=== PATIENT | female | born 1965 | race Caucasian/White ===

== ENCOUNTER 2024-06-16 09:56 | Emergency (ER) | payer OTHER ==
[~2024-06-16] VITALS: Ht 160 cm; Wt 73.0 kg
[2024-06-16 10:26] VITALS: O2SAT 98
[2024-06-16 10:46] LABS: BASOPHILS % 0.3 % (0.0-2.0); EOSINOPHILS % 1.5 % (0.0-5.0); HEMOGLOBIN. 13.1 g/dL (12.0-16.0); LYMPHOCYTES % 33.2 % (20.0-50.0); MEAN CORPUSCULAR HEMOGLOBIN 29.6 pg (28.0-32.0); MEAN CORPUSCULAR HGB CONC 33.5 g/dL (31.0-37.0); MEAN CORPUSCULAR VOLUME 88.2 fL (81.0-99.0); MEAN PLATELET VOLUME 9.5 fl (7.4-10.4); MONOCYTES % 5.3 % (2.0-8.0); NEUTROPHILS % 59.7 % (40.0-76.0); PLATELET 266 x1000/uL (130-400); RED BLOOD CELL COUNT 4.42 mill/uL (4.2-5.4); RED CELL DISTRIBUTION WIDTH 13.5 % (11.6-14.6); WHITE BLOOD COUNT 5.4 x1000/uL (4.5-11.0)
[2024-06-16 10:55] LABS: CHLORIDE 105 mEq/L (98-107); POTASSIUM 3.6 mEq/L (3.5-5.1); SODIUM 139 mEq/L (136-145)
[2024-06-16 10:56] LABS: CARBON DIOXIDE 29 mEq/L (21-32)
[2024-06-16 10:57] LABS: CALCIUM 9.9 mg/dL (8.7-10.4)
[2024-06-16 11:01] LABS: CREATININE 0.9 mg/dL (0.6-1.0); GLUCOSE 112 mg/dL (70-105)
[2024-06-16 11:02] LABS: UREA NITROGEN BLOOD 13 mg/dL (9-23)
[2024-06-16 11:03] LABS: ALANINE AMINOTRANSFERASE 21 IU/L (10-49); ALBUMIN 4.6 g/dL (3.2-4.8); ASPARTATE AMINOTRANSFERASE 25 IU/L (<34)
[2024-06-16 11:04] LABS: BILIRUBIN TOTAL 0.3 mg/dL (0.1-1.0); PROTEIN TOTAL 7.8 g/dL (6.0-8.3)
[2024-06-16 11:18] LABS: BILIRUBIN DIRECT < 0.1 mg/dL (<=3.0)
[2024-06-16 14:32] LABS: CLARITY URINE CLEAR (CLEAR); COLOR URINE YELLOW (YELLOW); GLUCOSE URINE NEGATIVE (NEGATIVE); KETONES URINE NEGATIVE (NEGATIVE); LEUKOCYTE ESTERASE URINE TRACE (NEGATIVE); NITRITE URINE NEGATIVE (NEGATIVE); OCCULT BLOOD URINE NEGATIVE (NEGATIVE); PH URINE 6.5 (4.5-8.0); PROTEIN URINE NEGATIVE (NEGATIVE); SPECIFIC GRAVITY URINE 1.017 (1.005-1.030); UROBILINOGEN URINE 0.2 E.U./dL (0.2-1.0)
[2024-06-16] MEDS ORDERED: CEPH500T MT (15:56)
[2024-06-16 16:10] LABS: MUCUS URINE 2+ /lpf (< = 2+); SQUAMOUS EPITHELIAL CELL URINE 3+ /lpf (RARE/1+)
[2024-06-16 16:11] LABS: BACTERIA URINE 2+; RBC URINE 0-2 /hpf (0-2)
[2024-06-16 16:48] VITALS: BP 133/84; PULSE 78; RESP 16; TEMP 36.94740; O2SAT 98
== END 2024-06-16 16:49 | disposition home or self-care (01) ==
LOC: ER 09:56
DX: N39.0 Urinary tract infection, site not specified (principal); E78.00 Pure hypercholesterolemia, unspecified
CPT/HCPCS: 36415; 74176; 80048; 80076; 81003; 85025; 99284